=== PATIENT | female | born 1955 | race Caucasian/White ===

== ENCOUNTER 2020-03-19 12:00 | Outpatient (CLI) | payer MEDICARE, OTHER, SELFPAY ==
[2020-03-19 13:56] LABS: Thyroid Stimulating Hormone 0.036 uIU/mL (0.465-4.680)
[2020-03-19 14:03] LABS: Free T4 Free Thyroxine 1.47 ng/mL (0.78-2.19)
[2020-03-20 09:03] LABS: Rapid Plasma Reagin Non-Reactive (NonReactive)
== END 2020-03-19 12:01 | disposition home or self-care (01) ==
LOC: ANHLAB 12:20
PROVIDERS: PCP Physician Assistant; Visit Provider Physician Assistant
DX: Z77.21 Contact with and (suspected) exposure to potentially hazardous body fluids (principal); E03.9 Hypothyroidism, unspecified
CPT/HCPCS: 36415; 84439; 84443; 86592; 86695; 86696; 87491; 87591; 87635; C9803; U0003

== ENCOUNTER 2020-04-13 14:18 | Observation (INO) | payer OTHER, MEDICARE, SELFPAY ==
[2020-04-13] VITALS (9 sets, daily range): BP systolic 105–149; BP diastolic 55–76; PULSE 57–72; RESP 13–18; TEMP 36.2–36.4; O2SAT 96–100; BMI 25.0
--- NOTE | ~2020-04-13 | CT_ITS ---
EXAMINATION: CT brain wo con DATE: 04/13/2020 15:09 INDICATION: Seizure. TECHNIQUE: Computed tomography (CT) of the head was performed without intravenous contrast. The mA wa s adjusted according to patient size. Iterative reconstruction technique was employed. The dose-lengt h product was 605.33 mGy-cm. COMPARISON: Head CT 10/27/2015 FINDINGS: There are scattered areas of low attenuation in the cerebral white matter. There is no intr acranial hemorrhage, acute infarction, or abnormal intracranial mass lesion. The ventricles are lanette l in size. The orbits are normal. The paranasal sinuses are clear. The mastoid air cells are normal. IMPRESSION: 1. Stable moderate nonspecific cerebral white matter disease, which likely represents chronic small v essel ischemic disease. Reviewed, dictated and finalized at location A. IMPRESSION: 1. Stable moderate nonspecific cerebral white matter disease, which likely repr esents chronic small vessel ischemic disease.
--- NOTE | 2020-04-13 14:27 | ECG_ITS ---
Measurements Intervals [place] Rate: 55 P: 49 OR: 172 QRS: -10 QRSD: 93 T: 44 QT: 425 QTc: 410 Interpretive Statements SINUS BRADYCARDIA DELAYED PRECORDIAL R/S TRANSITION BORDERLINE ECG Electronically Signed On 04-13-2020 14:39:07 CDT by Henrique Cordero D.O.
--- NOTE | 2020-04-13 14:39 | ED.GENADULT ---
HPI - General Adult General Chief complaint: Seizure Stated complaint: Seizure Time Seen by Provider: 04/13/20 14:26 Source: patient and RN notes reviewed History of Present Illness HPI narrative: Patient is a 65 y/o female brought in by hospital staff because she reportedly had a seizure while getting blood drawn for outpatient lab. She recalls sitting there getting ready for blood drawn and does not recall what happened afterwards. Apparently, rapid response was called because she became unresponsive and was shaking. She feels well currently. She denies any pain. Related Data Home Medications Medication Instructions Recorded Confirmed clonazepam 1 mg tablet 1 mg PO DAILY 06/04/19 03/25/20 donepezil 5 mg tablet 5 mg PO ONCE 06/04/19 03/25/20 zonisamide 100 mg capsule 400 mg PO DAILY cap 06/04/19 03/25/20 fluoxetine mg 04/13/20 04/13/20 Allergies Allergy/AdvReac Type Severity Reaction Status Date / Time docosahexaenoic acid Allergy Mild Other Verified 04/13/20 14:36 [From Vayarol] eicosapentaenoic acid Allergy Mild Other Verified 04/13/20 14:36 [From Vayarol] fish oil [From Vayarol] Allergy Mild Other Verified 04/13/20 14:36 omega-3 fatty acids Allergy Mild Other Verified 04/13/20 14:36 [From Vayarol] phytosterol [From Vayarol] Allergy Mild Other Verified 04/13/20 14:36 Review of Systems Constitutional: Constitutional: Denies chills, Denies fever(s), Denies headache(s) and Denies weakness Eyes: Eyes: Denies blurry vision ENT: Denies headache(s) and Denies neck pain Cardiovascular: Cardiovascular: Denies chest pain and Denies dyspnea Respiratory: Respiratory: Denies cough and Denies dyspnea Gastrointestinal: Gastrointestinal: Denies abdominal pain, Denies diarrhea, Denies nausea and Denies vomiting Genitourinary: Genitourinary: Denies hematuria and Denies dysuria Musculoskeletal: Musculoskeletal: Denies back pain and Denies neck pain Neurologic: Denies headache(s), Reports convulsions, Reports seizure-like activity and Denies weakness [facility] Surgical History Surgical History H/O blepharoplasty Hx of appendectomy Tubal ligation status Social History Social History Smoking packs per day: 1 Smoking cigarettes per day: 20.0 Years smoked: 35 Smoking pack-years: 35.00 Smoking status: Former smoker Second hand tobacco smoke exposure: No Alcohol intake: never Substance use: never Gender identity (if verbalized by the patient): Female Exam Const: General: no acute distress and well developed Orientation/consciousness: oriented to person, oriented to place, oriented to time and patient oriented x3 HENMT: Head: normocephalic Ears: external ears normal General nose exam: Normal external nose present Eyes: General: appearance normal, both eyes and all related structures Conjunctivae: conjunctivae normal Neck: Neck: normal visual inspection and full ROM Chest: Chest palpation & inspection: normal inspection of the chest and no tenderness Resp: Effort & Inspection: normal respiratory effort Auscultation: clear to auscultation bilaterally Cardio: Rate: regular rate Rhythm: regular rhythm GI: GI Palp: No abdominal tenderness and Yes Soft to palpation Skin: General skin exam: normal color and turgor normal Neuro: General: oriented to person, oriented to place, oriented to time and patient oriented x3 Cranial nerves: Yes CN's II-XII intact bilaterally Cognition (Neuro): normal cognition Motor exam (neuro): 5/5 motor strength present throughout Extrem: General: normal to inspection, full ROM and no pedal edema Psych: Appearance: grossly normal Mental Status: mental status grossly normal Affect: normal affect Course Reevaluation(s) Reevaluation #1: Patient reportedly had another seizure while in CT. Currently, she is awake, but somewhat confused. Date: 04/13/20 Ti
[2020-04-13 15:00] LABS: Add Urine Microscopic? NO; Appearance Urine Clear (Clear); Bilirubin Urine Negative (Negative); Blood Urine Negative (Negative); Color Urine Yellow (Yellow); Glucose Urine UA Negative (Negative); Ketones Urine Negative (Negative); Leukocyte Esterase Ur Negative LEU/UL (Negative); Mucus Urine Rare /lpf; Nitrate Urine Negative (Negative); Protein Urine Negative (Negative); RBC Urine 0-2 /hpf (0-2); Specific Grav Ur 1.017 (1.001-1.035); Squamous Epithelial Cell Urine Rare /hpf (Few); Urobilinogen Urine Negative mg/dL (<2.0); WBC Urine 0-3 /hpf
[2020-04-13 15:02] LABS: Basophils Percent Auto 0.7 % (0.2-1.2); Eosinophils Absolute Auto 0.3 K/mm3 (0-0.3); Eosinophils Percent Auto 5.1 % (0-4.4); Hematocrit 41.8 % (37.0-47.0); Hemoglobin 13.5 g/dL (12.0-15.0); Immature Granulocyte Absolute 0.02 K/mm3 (0.00-0.031); Immature Granulocyte Percent A 0.3 % (0-0.5); Lymphocytes Absolute Auto 1.89 K/mm3 (0.9-3.2); Lymphocytes Percent Auto 30.9 % (18.3-44.2); Mean Corpuscular HGB Conc 32.3 g/dl (32-36); Mean Corpuscular Hemoglobin 30.6 pg (26-34); Mean Corpuscular Volume 94.8 fl (80-100); Mean Platelet Volume 9.7 fl (7.4-10.4); Monocytes Absolute Auto 0.4 K/mm3 (0.1-0.6); Monocytes Percent Auto 6.9 % (2.6-8.5); Neutrophils Absolute Auto 3.4 K/mm3 (1.3-6.7); Neutrophils Percent Auto 56.1 % (45.5-73.1); Platelet Count Result 232 k/mm3 (150-375); Red Blood Count 4.41 M/mm3 (4.2-5.4); Red Cell Distribution Width 13.5 % (11.5-14.5); White Blood Count 6.1 K/mm3 (4.5-10.0)
[2020-04-13 15:14] LABS: Alanine Aminotransferase 14 U/L (4-35); Alkaline Phosphatase 109 U/L (38-126); Anion Gap 6 mmol/L (8-16); Aspartate Amino Transferase 20 U/L (14-36); Bilirubin,Total 0.4 mg/dL (0.2-1.3); Blood Urea Nitrogen 18 mg/dL (7-17); Carbon Dioxide 30 mmol/L (22-30); Chloride 102 mmol/L (98-107); Estimated CRCL calculation 37 ml/min; Estimated Glomerular Filt Rate 56; Glucose 87 mg/dL (65-105); Potassium 4.3 mmol/L (3.4-5.0); Sodium 138 mmol/L (137-145)
--- NOTE | 2020-04-13 15:15 | PC.NURSE ---
Rapid response called to CT, pt was shaking but making purposeful movement, Pt is alert and oriented, VORB for 1 mg ativan
[2020-04-13 15:17] LABS: Amphetamine Screen Urine Negative (Negative); Barbiturate Screen Urine Negative (Negative); Benzodiazepines Screen Urine Negative (Negative); Cannabinoid Screen Urine Negative (Negative); Cocaine Screen Urine Negative (Negative); Methadone Screen Urine Negative (Negative); Opiate Screen Urine Negative (Negative); Phencyclidine Screen Urine Negative (Negative)
--- NOTE | 2020-04-13 15:23 | PC.NURSE ---
Pt alert and oriented, pt refusing ativan at this time. Pt still shaking her right arm
--- NOTE | 2020-04-13 17:29 | PC.NURSE ---
Dietary tray ordered for pt at this time.
--- NOTE | 2020-04-13 19:00 | ADMGEN ---
This patient, Conchis Galindo, was admitted to Medical Room 342-01. Patient/family oriented to hospital policies and general routines including ID bracelet, bed and alarms, visiting hours, pain management, procedures, bathroom and other care routines, personal items, smoking policy, room service/diet, and visiting hours. Valuables list has been completed. Information on how to activate the Rapid Response Team has been discussed. Patient/Family are encouraged to report perceived risks to care and to ask questions if they do not understand what they are told or what they should do.
--- NOTE | 2020-04-13 22:13 | PM.IMHP ---
H&P: HPI History of Present Illness Date/Time: 04/13/20 22:13 Chief complaint: seizure Narrative: this is a 65-year-old demented female with known history of a possible seizure disorder, bipolar disorder, hypothyroidism, and hyperlipidemia who presented to the hospital today get routine labs done when she had a unresponsive event. Apparently a rapid response was called because the patient became unresponsive and began shaking. It is unknown exactly how long the patient's possible seizure-like activity lasted for today. The patient is known to see neurology at [facility] for possible seizure disorder although she tells me she was diagnosed with myoclonic jerks approximately 10 years ago. The patient is known to live alone and she states that she knows she can not live alone anymore because she has been having 2-5 falls every week. The patient believes that she has paroxysmal myoclonic jerking episodes in the middle the night because often she wakes up the next morning on the ground. Today the patient did not have any tongue biting or loss of urine. She denies any recent head trauma and states she has been taking her Zonegran as prescribed. the patient was evaluated emergency room this evening and CT brain was unremarkable for any acute pathology. Routine labs were obtained which were unremarkable. The patient does not appear to have had a prolonged postictal and on my encounter with her she is asymptomatic. On further review she denies any recent fever, chills, headache, nausea, vomiting, blurry vision, facial droop, slurred speech, difficulty swallowing, chest pain, shortness of breath, wheezing, sore throat, abdominal pain, dysuria, hematuria, diarrhea, rectal bleeding, lower extremity swelling, numbness, tingling, or focal weakness. ER provider has consulted neurology who has asked that we admit the patient to the hospital and they will evaluate her in the morning. ER provider has also called her neurologist at [facility]. Review of Systems Review of Systems: All systems reviewed & are unremarkable except as noted in HPI and below PMFSH Past Medical History Medical History (Updated 04/14/20 @ 03:46 by Homero Packer MD) Bipolar 1 disorder Hyperlipidemia Hypothyroidism Myoclonic jerking Seizure disorder Surgical History Surgical History H/O blepharoplasty Hx of appendectomy Tubal ligation status Family History Family History Father Acute myocardial infarction Congestive heart failure Hypertension Grandparent Acute myocardial infarction Asthma Chronic obstructive pulmonary disease Congestive heart failure Hypertension Son Asthma Cerebrovascular accident Son Hypertension Grandparent Hypertension Grandparent Hypertension Grandparent Hypertension Social History Social History Smoking packs per day: 1 Smoking cigarettes per day: 20.0 Years smoked: 48 Smoking pack-years: 48.00 Smoking status: Former smoker Second hand tobacco smoke exposure: Yes Alcohol intake: never Substance use: never Gender identity (if verbalized by the patient): Female Spiritual care concerns: No Meds Home Medications and Allergies Home Medications Medication Instructions Recorded Confirmed Type clonazepam 1 mg tablet 1 mg PO BID 06/04/19 04/13/20 History donepezil 5 mg tablet 5 mg PO HS 06/04/19 04/13/20 History zonisamide 100 mg capsule 400 mg PO HS cap 06/04/19 04/13/20 History levothyroxine 100 mcg tablet 100 mcg PO DAILY #90 tablet 03/23/20 04/13/20 Rx fluoxetine [Prozac] 20 mg PO DAILY 04/13/20 04/13/20 History pravastatin 80 mg PO HS 04/13/20 04/13/20 History Allergies Allergy/AdvReac Type Severity Reaction Status Date / Time docosahexaenoic acid Allergy Mild Other Verified 04/13/20 19:40 [From Shruthi
[2020-04-13] MEDS: clonazePAM (*CRX) 0.5 MG TABLET 1 MG PO (23:20)
[2020-04-13] MEDS: ZONISAMIDE 100 MG CAPSULE 400 MG PO (23:20)
[2020-04-13] MEDS: DONEPEZIL HCL 5 MG TABLET PO (23:20)
[2020-04-13] MEDS: PRAVASTATIN SODIUM 20 MG TABLET 80 MG PO (23:21)
[2020-04-14] VITALS: PULSE 49
[2020-04-14 04:00] VITALS: PULSE 47
[2020-04-14 05:23] VITALS: BP 106/60; PULSE 49; RESP 16; TEMP 36.2; O2SAT 97
[2020-04-14] MEDS: LEVOTHYROXINE SODIUM 100 MCG TABLET PO (05:55)
[2020-04-14 08:00] VITALS: PULSE 65
--- NOTE | 2020-04-14 08:32 | PM.IMPN ---
Subjective Date/time seen: 04/14/20 08:32 Objective Data Vital Signs Vital Signs: Vital Signs - 24 hr 04/13/20 14:25 04/13/20 14:33 04/13/20 15:24 Temperature 97.5 F L Pulse Rate 57 L 57 L 60 Respiratory Rate 14 18 Blood Pressure 128/55 L 149/76 H Pulse Oximetry 97 97 100 04/13/20 16:43 04/13/20 17:26 04/13/20 18:15 Temperature Pulse Rate 72 58 L 62 Respiratory Rate 15 14 13 Blood Pressure 143/59 H 140/55 L 109/65 Pulse Oximetry 100 100 96 04/13/20 19:29 04/13/20 19:32 04/13/20 20:00 Temperature 97.1 F L 97.1 F L Pulse Rate 59 L 59 L 61 Respiratory Rate 14 16 Blood Pressure 105/58 L 105/58 L Pulse Oximetry 100 100 04/14/20 00:00 04/14/20 04:00 04/14/20 05:23 Temperature 97.1 F L Pulse Rate 49 L 47 L 49 L Respiratory Rate 16 Blood Pressure 106/60 Pulse Oximetry 97 04/14/20 08:00 Temperature Pulse Rate 65 Respiratory Rate Blood Pressure Pulse Oximetry Intake/Output Intake/Output: Intake & Output 04/11/20 04/12/20 04/13/20 04/14/20 23:59 23:59 23:59 23:59 Intake Total 300 Output Total 400 600 Balance -400 -300 Meds/Results Medications: Active Medications Generic Name Dose Route Start Last Admin Trade Name Freq PRN Reason Stop Dose Admin Clonazepam 1 mg 04/13/20 22:30 04/13/20 23:20 Clonazepam (*Crx) 0.5 Mg Tablet PO 1 mg Q12HR JALEEL Administration Donepezil HCl 5 mg 04/13/20 22:30 04/13/20 23:20 Donepezil Hcl 5 Mg Tablet PO 5 mg HS JALEEL Administration Fluoxetine HCl 20 mg 04/14/20 09:00 Fluoxetine Hcl 20 Mg Capsule PO DAILY JALEEL Levothyroxine Sodium 100 mcg 04/14/20 06:30 04/14/20 05:55 Levothyroxine Sodium 100 Mcg Tablet PO 100 mcg DAILY@0630 JALEEL Administration Pravastatin Sodium 80 mg 04/13/20 22:30 04/13/20 23:21 Pravastatin Sodium 20 Mg Tablet PO 80 mg HS JALEEL Administration Zonisamide 400 mg 04/13/20 22:30 04/13/20 23:20 Zonisamide 100 Mg Capsule PO 400 mg HS JALEEL Administration Radiology Results: ITS Impressions Head CT 04/13/20 15:13 IMPRESSION: 1. Stable moderate nonspecific cerebral white matter disease, which likely represents chronic small vessel ischemic disease. Labs Labs: Laboratory Results - last 24 hr 04/13/20 04/13/20 04/13/20 14:44 14:44 14:55 WBC 6.1 RBC 4.41 Hgb 13.5 Hct 41.8 MCV 94.8 MCH 30.6 MCHC 32.3 RDW 13.5 Plt Count 232 MPV 9.7 Immature Gran % (Auto) 0.3 Neut % (Auto) 56.1 Lymph % (Auto) 30.9 Butts % (Auto) 6.9 Eos % (Auto) 5.1 H Baso % (Auto) 0.7 Lymph # (Auto) 1.89 Butts # (Auto) 0.4 Eos # (Auto) 0.3 Baso # (Auto) 0.0 Abs Immat Gran (auto) 0.02 Absolute Neuts (auto) 3.4 Absolute Nucleated RBC 0.0 Nucleated RBC % 0.0 Sodium Potassium Chloride Carbon Dioxide Anion Gap BUN Creatinine Estim Creat Clear Calc Estimated GFR Glucose Lactic Acid Calcium Total Bilirubin AST ALT Alkaline Phosphatase Total Protein Albumin Urine Color Yellow Urine Appearance Clear Urine pH 6.0 Ur Specific [place] 1.017 Urine Protein Negative Urine Glucose (UA) Negative Urine Ketones Negative Ur Blood (Man) Negative Urine Nitrate Negative Urine Bilirubin Negative Urine Urobilinogen Negative Leukocyte Esterase Rfl Negative Urine RBC 0-2 Urine WBC 0-3 Ur Squamous Epith Cells Rare Urine Mucus Rare Urine Opiates Screen Negative Urine Methadone Screen Negative Ur Barbiturates Screen Negative Ur Phencyclidine Scrn Negative Ur Amphetamine Screen Negative U Benzodiazepines Scrn Negative Urine Cocaine Screen Negative U Cannabinoids Screen Negative 04/13/20 04/13/20 14:55 15:45 WBC RBC Hgb Hct MCV MCH MCHC RDW Plt Count MPV Immature Gran % (Auto) Neut % (Auto) Lymph % (Auto) Butts % (Auto) Eos %
[2020-04-14] MEDS: clonazePAM (*CRX) 0.5 MG TABLET 1 MG PO (09:13)
[2020-04-14] MEDS: FLUoxetine HCL 20 MG CAPSULE PO (09:13)
--- NOTE | 2020-04-14 09:15 | WPDNEUROLOGY ---
Neurology EEG Report General Information Date of Study: 04/14/20 TEST EEG DIAGNOSIS seizures CONDITION OF RECORDING Awake drowsy and sleep EEG NUMBER [id number] CLINICAL HISTORY patient came to the hospital day before for some blood workup, unfortunately had a seizure while waiting in the room EEG DESCRIPTION basic resting occipital frequency consists of large amount of well-organized low to medium voltage 8 to 10 hertz per 2nd alpha admixed with low-voltage 15 to 18 hertz per 2nd beta. During drowsiness low-voltage beta activity seen diffusely admixed with waxing and waning alpha activity. Hyperventilation not done photic stimulation not done. Non paroxysmal. Nonfocal. Nonlateralizing. IMPRESSION Normal EEG
--- NOTE | 2020-04-14 11:05 | WPDNEURCNPN ---
Assessment and Plan Assessment and plan (1) Bipolar 1 disorder: Code(s): F31.9 - Bipolar disorder, unspecified Status: Chronic (2) Seizure disorder: Code(s): G40.909 - Epilepsy, unspecified, not intractable, without status epilepticus Status: Chronic Additional Plan continue the medication as such and follow up with her physicians at [facility] she is taking zonisamide 40 mg at HS along with Klonopin 1 mg p.o. q.12 hours no need to make any changes in the medication at this particular time Consult date: 04/14/20 Time Seen: 10:45 HPI: Conchis Galindo is a 65 year old female admitted to the hospital with the diagnosis of seizure in addition to the ongoing history of possible seizure disorder, bipolar disorder, hypothyroidism, and hyperlipidemia patient reportedly came to the hospital to have a routine lab done with their she became unresponsive rapid response was called to the scene and patient was noted with shaking all over patient has been under the care of neurologist at [facility] for the possible seizure disorder diagnosed about 10 years ago at present she is living alone and has been unable to continue living alone because of recurrent falls every week he usually myoclonic jerks during her sleep wakes up in the morning with signs of incontinence she gave no history of recent or remote trauma she reported that she has been taking Zonegran am as prescribed in the emergency room a CT scan of the head was normal and she was not noted to have any postictal. Her ongoing diagnosis have been documented as bipolar 1 disorder with hyperlipidemia hypothyroidism and myoclonic seizure disorder evaluation up until long includes the CT scan of the head which is normal except the nonspecific white matter disease normal routine lab studies and EEG read by myself negative Review of Systems Review of Systems: All systems reviewed & are unremarkable except as noted in HPI and below PMFSH Past Medical History Medical History (Updated 04/14/20 @ 03:46 by Homero Packer MD) Bipolar 1 disorder Hyperlipidemia Hypothyroidism Myoclonic jerking Seizure disorder Surgical History Surgical History H/O blepharoplasty Hx of appendectomy Tubal ligation status Family History Family History Father Acute myocardial infarction Congestive heart failure Hypertension Grandparent Acute myocardial infarction Asthma Chronic obstructive pulmonary disease Congestive heart failure Hypertension Son Asthma Cerebrovascular accident Son Hypertension Grandparent Hypertension Grandparent Hypertension Grandparent Hypertension Social History Social History Smoking packs per day: 1 Smoking cigarettes per day: 20.0 Years smoked: 48 Smoking pack-years: 48.00 Smoking status: Former smoker Second hand tobacco smoke exposure: Yes Alcohol intake: never Substance use: never Gender identity (if verbalized by the patient): Female Spiritual care concerns: No Meds Home Medications and Allergies Home Medications Medication Instructions Recorded Confirmed Type clonazepam 1 mg tablet 1 mg PO BID 06/04/19 04/13/20 History donepezil 5 mg tablet 5 mg PO HS 06/04/19 04/13/20 History zonisamide 100 mg capsule 400 mg PO HS cap 06/04/19 04/13/20 History levothyroxine 100 mcg tablet 100 mcg PO DAILY #90 tablet 03/23/20 04/13/20 Rx fluoxetine [Prozac] 20 mg PO DAILY 04/13/20 04/13/20 History pravastatin 80 mg PO HS 04/13/20 04/13/20 History Allergies Allergy/AdvReac Type Severity Reaction Status Date / Time docosahexaenoic acid Allergy Mild Other Verified 04/13/20 19:40 [From Vayarol] eicosapentaenoic acid Allergy Mild Other Verified 04/13/20 19:40 [From Vayarol] fish oil [From Vayarol] Allergy Mild Other Verifie
[2020-04-14 12:00] VITALS: PULSE 76
[2020-04-14 13:42] VITALS: BP 128/51; PULSE 53; RESP 16; TEMP 35.8; O2SAT 99
--- NOTE | 2020-04-15 17:05 | PM.DS ---
DS: Admitting Diagnosis Admitting Diagnosis Admitting Diagnosis: Patient with history of seizure was receiving lab work results when she had an episode absence seizure was brought to ED for evaluation. Preliminary work up was unrevealing. A CT of the head showed chronic non specific white matter disease. DS: Discharge Diagnosis Discharge Diagnosis (1) Unresponsive episode: Code(s): R41.89 - Other symptoms and signs involving cognitive functions and awareness Status: Acute Assessment and Plan: Patient was evaluated by Neurology for this unresponsive episode No new episodes while hospital stay were witnessed. Decision was to continue her home meds and follow up at [facility] with her regular Neurologist. (2) Bipolar 1 disorder: Code(s): F31.9 - Bipolar disorder, unspecified Status: Chronic Assessment and Plan: Was stable Home meds wre continued. (3) Hyperlipidemia: Qualifiers: Hyperlipidemia type: unspecified Qualified Code(s): E78.5 - Hyperlipidemia, unspecified Code(s): E78.5 - Hyperlipidemia, unspecified Status: Chronic Assessment and Plan: Stable Home meds continued (4) Seizure disorder: Code(s): G40.909 - Epilepsy, unspecified, not intractable, without status epilepticus Status: Chronic Assessment and Plan: Continue home meds Neurology consulted. (5) Seizure: Code(s): R56.9 - Unspecified convulsions Status: Acute Assessment and Plan: No episodes during her admission. As per Neurology no changes to current meds Recommended to follow up as usual with her Neurologist. (6) Hypothyroidism: Qualifiers: Hypothyroidism type: unspecified Qualified Code(s): E03.9 - Hypothyroidism, unspecified Code(s): E03.9 - Hypothyroidism, unspecified Status: Chronic Assessment and Plan: Unchanged Continue home meds DS: Summary Time Spent with Patient Time attestation: Total time spent providing and/or coordinating discharge services: Exam Narrative: Exam Narrative: Sitting in bed well appearing. Const: General: cooperative, healthy appearing, no acute distress, alert, awake and Physically active Nutritional Appearance: average body habitus HENMT: Head: normal to inspection and normocephalic Ears: hearing grossly normal bilaterally General nose exam: Normal external nose present Face and sinus: normal facial exam Mouth: Yes Normal oral and palatal mucosa present Eyes: General: appearance normal, both eyes and all related structures Pupils: Equal, round and reactive pupils present EOM: EOMs intact bilaterally Neck: Neck: full ROM, no lymphadenopathy and no JVD Thyroid: thyroid normal Resp: Effort & Inspection: normal respiratory effort Auscultation: clear to auscultation bilaterally Cardio: Jugular venous distension: no JVD Heart sounds: S1 normal heart sound present and S2 normal heart sound present GI: Inspection: normal to inspection GI Palp: Yes Soft to palpation and Yes No hepatosplenomegaly present Auscultation: normal bowel sounds Skin: General skin exam: normal color and turgor normal Lesions: no lesions Rashes: no rashes Trauma: no lacerations or abrasions Wounds: no wounds Hair: normal Neuro: General: patient oriented x3 and CN's II-XI intact bilaterally Cranial nerves: Yes Equal, round and reactive pupils present Motor exam (neuro): 5/5 motor strength present throughout Sensory Exam: normal sensation Discharge Plan Discharge Attending physician on discharge: Janay Treadwell V. Consulting providers: Gianni Arnold ; Henrique Cordero ; Torres Zhao ; Parminder Campos V. ; Homero Packer Discharging Clinician: Janay Treadwell V. Patient Disposition: Home, Self-Care Activity: as tolerated Diet: regular Patient Instructions: Antibiotic Form, Clonazepam (By mouth), Pain Management (DC), Epilepsy (DC), Weakness (DC), Fall Prevention (DC), Electroencephalogra
[2020-04-16 04:13] LABS: Prolactin 13.2 ng/mL (***)
== END 2020-04-14 15:02 | disposition home or self-care (01) ==
LOC: ANHED 15:36 → ANH3MED 19:00
PROVIDERS: Admitting Provider Internal Medicine; Emergency Provider Emergency Medicine; PCP Physician Assistant; Visit Provider Internal Medicine
DX: R41.89 Other symptoms and signs involving cognitive functions and awareness (principal); F31.9 Bipolar disorder, unspecified; G40.909 Epilepsy, unspecified, not intractable, without status epilepticus; E03.9 Hypothyroidism, unspecified; E78.5 Hyperlipidemia, unspecified; R29.6 Repeated falls; Z87.891 Personal history of nicotine dependence; Z23 Encounter for immunization
CPT/HCPCS: 36415; 51701; 70450; 80053; 80307; 81003; 83605; 84146; 85025; 90471; 90653; 93005; 95816; 99285; A9270; G0008; G0378; J2060

== ENCOUNTER 2020-09-07 16:16 | Outpatient (CLI) | payer OTHER, MEDICARE, SELFPAY ==
[2020-09-07 17:44] LABS: Free T4 Free Thyroxine 1.42 ng/mL (0.78-2.19)
[2020-09-07 17:50] LABS: Thyroid Stimulating Hormone 0.212 uIU/mL (0.465-4.680)
== END 2020-09-07 16:17 | disposition home or self-care (01) ==
LOC: ANHLAB 16:20
PROVIDERS: PCP Physician Assistant; Visit Provider Physician Assistant
DX: E03.9 Hypothyroidism, unspecified (principal)
CPT/HCPCS: 36415; 84439; 84443

== ENCOUNTER 2020-09-08 16:38 | Outpatient (CLI) | payer OTHER, MEDICARE, SELFPAY | END 2020-09-08 16:39 | disposition home or self-care (01) | LOC: ANHCOVIDVC 16:38 | PROVIDERS: PCP Physician Assistant | DX: Z23 Encounter for immunization (principal) | CPT/HCPCS: 0001A; 91300 ==

== ENCOUNTER 2020-09-29 17:12 | Outpatient (CLI) | payer OTHER, MEDICARE, SELFPAY | END 2020-09-29 17:13 | disposition home or self-care (01) | LOC: ANHCOVIDVC 17:14 | PROVIDERS: PCP Physician Assistant | DX: Z23 Encounter for immunization (principal) | CPT/HCPCS: 0002A; 91300 ==

== ENCOUNTER 2021-03-17 11:45 | Outpatient (CLI) | payer OTHER, MEDICARE, SELFPAY ==
[2021-03-17 17:44] LABS: Free T4 Free Thyroxine 1.31 ng/mL (0.78-2.19)
== END 2021-03-17 11:46 | disposition home or self-care (01) ==
PROVIDERS: PCP Physician Assistant; Visit Provider Physician Assistant
DX: E03.9 Hypothyroidism, unspecified (principal)
CPT/HCPCS: 36415; 84439; 84443

== ENCOUNTER → 2021-06-07 10:45 | Outpatient (NON) | payer MEDICARE, OTHER, SELFPAY ==
[2020-03-19 20:08] LABS: SARS-CoV-2 RNA PCR Negative
== END | disposition home or self-care (01) ==
PROVIDERS: PCP Physician Assistant; Visit Provider Physician Assistant
DX: R68.89 Other general symptoms and signs (principal); Z20.828 Contact with and (suspected) exposure to other viral communicable diseases
CPT/HCPCS: 99199; 87635; C9803; U0003

== ENCOUNTER 2021-10-14 11:31 | Outpatient (CLI) | payer OTHER, MEDICARE, SELFPAY ==
[2021-10-14 12:04] LABS: Hematocrit 45.4 % (37.0-47.0); Hemoglobin 14.7 g/dL (12.0-15.0); Mean Corpuscular HGB Conc 32.4 g/dl (32-36); Mean Corpuscular Hemoglobin 30.2 pg (26-34); Mean Corpuscular Volume 93.2 fl (80-100); Mean Platelet Volume 9.1 fl (7.4-10.4); Platelet Count Result 300 k/mm3 (150-375); Red Blood Count 4.87 M/mm3 (4.2-5.4); Red Cell Distribution Width 14.5 % (11.5-14.5); White Blood Count 9.5 K/mm3 (4.5-10.0)
[2021-10-14 12:23] LABS: Alanine Aminotransferase 14 U/L (4-35); Albumin Level 4.9 g/dL (3.5-5.1); Alkaline Phosphatase 99 U/L (38-126); Anion Gap 8 mmol/L (8-16); Aspartate Amino Transferase 26 U/L (14-36); Bilirubin,Total 0.4 mg/dL (0.2-1.3); Blood Urea Nitrogen 19 mg/dL (7-17); Calcium 9.2 mg/dL (8.4-10.2); Carbon Dioxide 28 mmol/L (22-30); Chloride 100 mmol/L (98-107); Estimated Glomerular Filt Rate > 60; Glucose 97 mg/dL (65-110); HDL Direct 67 mg/dL; Potassium 4.1 mmol/L (3.4-5.0); Sodium 136 mmol/L (137-145); Triglycerides 216 mg/dL (<150)
[2021-10-14 12:28] LABS: LDL Cholesterol Direct 178 mg/dL
[2021-10-14 12:46] LABS: Cholesterol 348 mg/dL (0-200)
[2021-10-14 13:01] LABS: Hepatitis B Surface Antigen Negative (Negative)
[2021-10-14 13:06] LABS: HAV RESULT Negative (Negative); Hepatitis B Core IgM Result Negative (Negative)
[2021-10-14 13:18] LABS: Hepatitis C Virus Antibody Negative (Negative)
[2021-10-15 05:48] LABS: Rapid Plasma Reagin Non-Reactive (NonReactive)
[2021-10-18 06:56] LABS: HIV 1 2 Ag Ab 4th Gen w Rflxs Non-reactive (Non-reactive)
== END 2021-10-14 11:32 | disposition home or self-care (01) ==
LOC: ANHLAB 11:32
PROVIDERS: PCP Physician Assistant; Visit Provider Physician Assistant
DX: R53.83 Other fatigue (principal); E78.5 Hyperlipidemia, unspecified; Z11.3 Encounter for screening for infections with a predominantly sexual mode of transmission
CPT/HCPCS: 36415; 80053; 80061; 80074; 82607; 82746; 84443; 85027; 86592; 86695; 86696; 87389; 87491; 87591

== ENCOUNTER 2022-10-17 11:09 | Outpatient (CLI) | payer OTHER, MEDICARE, SELFPAY ==
[2022-10-17 11:38] LABS: Basophils Absolute Auto 0.1 K/mm3 (0.0-0.1); Basophils Percent Auto 0.6 % (0.2-1.2); Eosinophils Absolute Auto 0.5 K/mm3 (0-0.3); Eosinophils Percent Auto 5.9 % (0-4.4); Hematocrit 45.8 % (37.0-47.0); Immature Granulocyte Absolute 0.02 K/mm3 (0.00-0.031); Immature Granulocyte Percent A 0.2 % (0-0.5); Lymphocytes Percent Auto 26.1 % (18.3-44.2); Mean Corpuscular HGB Conc 32.8 g/dl (32-36); Mean Corpuscular Hemoglobin 29.1 pg (26-34); Mean Corpuscular Volume 88.8 fl (80-100); Mean Platelet Volume 9.1 fl (7.4-10.4); Monocytes Absolute Auto 0.5 K/mm3 (0.1-0.6); Monocytes Percent Auto 5.7 % (2.6-8.5); Neutrophils Absolute Auto 5.4 K/mm3 (1.3-6.7); Neutrophils Percent Auto 61.5 % (45.5-73.1); Platelet Count Result 319 k/mm3 (150-375); Red Blood Count 5.16 M/mm3 (4.2-5.4); Red Cell Distribution Width 14.9 % (11.5-14.5); White Blood Count 8.8 K/mm3 (4.5-10.0)
[2022-10-17 11:46] LABS: Alanine Aminotransferase 18 U/L (6-35); Albumin Level 4.9 g/dL (3.5-5.1); Alkaline Phosphatase 122 U/L (38-126); Anion Gap 6 mmol/L (8-16); Aspartate Amino Transferase 24 U/L (14-36); Bilirubin,Total 0.7 mg/dL (0.2-1.3); Blood Urea Nitrogen 14 mg/dL (7-17); Calcium 9.2 mg/dL (8.4-10.2); Carbon Dioxide 33 mmol/L (22-30); Chloride 98 mmol/L (98-107); Cholesterol 255 mg/dL (0-200); Estimated Glomerular Filt Rate > 60; Glucose 106 mg/dL (65-110); HDL Direct 49 mg/dL; Potassium 4.4 mmol/L (3.4-5.0); Sodium 137 mmol/L (137-145); Triglycerides 195 mg/dL (<150)
[2022-10-17 11:57] LABS: LDL Cholesterol Direct 142 mg/dL
[2022-10-17 14:04] LABS: Folic Acid 5.6 ng/mL (2.76->20)
== END 2022-10-17 11:10 | disposition home or self-care (01) ==
PROVIDERS: PCP Physician Assistant; Visit Provider Physician Assistant
DX: R53.83 Other fatigue (principal); E03.9 Hypothyroidism, unspecified; E78.5 Hyperlipidemia, unspecified
CPT/HCPCS: 36415; 80053; 80061; 82607; 82746; 84439; 84443; 85025

== ENCOUNTER 2024-08-07 14:14 | Outpatient (CLI) | payer OTHER, MEDICARE, MEDICAID, SELFPAY ==
--- OUTSIDE RECORDS SUMMARY | 2024-08-07 15:12 | XMS_ITS | Patient Health Summary ---
Author Organization [facility] Address [address] [place] [address] Care Team Providers Care Research Associate Name Role Phone Graham Magallanes MD Unavailable [phone] Marie Kwan MD Unavailable [phone] Note from [facility],non-owned Affiliates and Associated Physician Practices is amultiple site organization consisting of ambulatory clinics and hospital sitesin [place] and [place]. This disclosure is being madepursuant to the Care Everywhere program and may not contain all information available regarding this patient. Last updated 18.[facility] Allergies * Duloxetine(Caused perfecto) Medications * Be aware that medications may not be up to date on this document. Alwaysverify current medications with the patient. * FLUoxetine (PROZAC) 40 MG capsule(Started 02/07/2012) Take 1 Cap by mouth once daily. 5 refills left * clonazePAM (KLONOPIN) 0.5 MG tablet(Started 02/07/2012) Take 2 Tabs by mouth 2 times daily. * vitamin D (CHOLECACIFEROL) 5000 UNITS CAPS(Started 02/07/2012) Take 3 Caps by mouth every 7 days. * donepezil (ARICEPT) 10 MG tablet Take 0.5 mg by mouth at bedtime. * Multiple Vitamin (MULTI-VITAMIN DAILY PO) Take by mouth. * B Complex Vitamins (B COMPLEX PO) Take by mouth. * Ascorbic Acid (VITAMIN C PO) Take by mouth. * vitamin E (TOCOPHERYL) 1000 UNIT capsule Take 1,000 Units by mouth once daily. * levothyroxine (SYNTHROID) 88 MCG tablet(Started 07/17/2013) Take 1 Tab by mouth once daily. 3 refills left * bimatoprost (LUMIGAN) 0.03 % ophthalmic solution(Started 08/12/2013) 1 Drop at bedtime. 3 refills left * zonisamide (ZONEGRAN) 100 MG capsule Take 100 mg by mouth once daily. * pravastatin (PRAVACHOL) 80 MG tablet(Started 06/05/2014) TAKE 1 TABLET AT BEDTIME 2 refills left Active Problems Problem Noted Date Diagnosed Date Cognitive change Hypothyroid Depression Hypercholesteremia GERD (gastroesophageal reflux disease) Immunizations * INFLUENZA VACCINE, TRIV. (AFLURIA, FLUZONE TRIVALENT; 6MO+) (IIV3)(Given 04/16/2012) * FLU VACCINE TRI IIV3 SPLIT PF IM (FLUVIRIN)(Given 07/22/2013) Social History Tobacco Use Types Packs/Day Years Used Date Smoking Tobacco: Former Cigarettes 1 45 Smokeless Tobacco: Never Alcohol Use Standard Drinks/Week Comments No 0 (1 standard drink = 0.6 oz pur e alcohol) Sex and Gender Information Value Date Recorded Sex Assigned at Not on file Gender Identity Not on file Sexual Orientation Not on file Last Filed Vital Signs Vital Sign Reading Time Taken Comments Blood Pressure 134/66 03/03/2020 3:57 AM CDT Pulse 62 03/03/2020 3:57 AM CDT Temperature 36.1 C (97 F) 03/02/2020 8:08 PM CDT Respiratory Rate 16 03/03/2020 3:57 AM CDT Oxygen Saturation 100% 03/03/2020 3:57 AM CDT Inhaled Oxygen Concentration - - Weight 54 kg (119 lb) 03/02/2020 2:13 PM CDT Height 152.4 cm (5') 03/02/2020 2:13 PM CDT Body Mass Index 23.24 03/02/2020 2:13 PM CDT Procedures * URINALYSIS W/MICROSCOPIC NO CULTURE(Performed 03/03/2020) * TRICHOMONAS VAGINALIS AMPLIFIED PROBE(Performed 03/03/2020) * CHLAMYDIA + GC AMPLIFIED PROBE(Performed 03/03/2020) * ZONISAMIDE LEVEL(Performed 03/02/2020) * COMPREHENSIVE METABOLIC PANEL(Performed 03/02/2020) * CBC W AUTO DIFFERENTIAL(Performed 03/02/2020) * VITAMIN D 25-HYDROXY(Performed 03/07/2014) Performed for Cognitive change * TSH(Performed 03/07/2014) Performed for Hypothyroid * VITAMIN B12 FOLATE PANEL(Performed 03/07/2014) Performed for Hypothyroid * COMPREHENSIVE METABOLIC PANEL(Performed 03/07/2014) Performed for Hypothyroid * HEPATITIS C ANTIBODY(Performed 07/17/2013) * TSH(Performed 07/17/2013) * LIPID PROFILE(Performed 07/17/2013) * CBC W AUTO DIFFERENTIAL(Performed 07/17/2013) * HEPATITIS C ANTIBODY(Performed 01/21/2013) Performed for Need for hepatitis C screening test * TSH(Performed 01/21/2013) Performed for Hypothyroid * CBC W AUTO DIFFERENTIAL(Performed 01/21/2013) Performed for GERD (gastroesophageal reflux disease) * LIPID PROFILE(Performed 01/21/2013) Performed for Hypercholesteremia * GROWTH HORMONE HUMAN(Performed 04/09/2012) Performed for Cognitive change, Hypothyroid * TSH(Performed 03/13/2012) Performed for Hypothyroid * LIPID PROFILE(Performed 03/13/2012) Performed for Hypercholesteremia * DEXA BONE DENSITY 2 SITES(Performed 03/13/2012) Performed for Special screening for osteoporosis * MAMMO BILAT SCREENING(Performed 03/13/2012) Performed for Other screening mammogram * GROSS + MICRO EXAM(Performed 12/12/2007) * GROSS + MICRO EXAM(Performed 07/23/2007) * GROSS + MICRO EXAM(Performed 07/11/2007) Results * (ABNORMAL) URINALYSIS W/MICROSCOPIC NO CULTURE (03/03/2020 2:58 AM CDT) Color UA Yellow Straw, Yellow, Colorless 03/03/2020 3:21 AM CDT [facility] Clarity UA Slt Cloudy Clear, Slt Cloudy 03/03/2020 3:21 AM T [facility] Specific [place] UA 1.026 1.005 - 1.030 03/03/2020 3:21 AM [facility] pH UA 5.0 5.0 - 8.0 pH 03/03/2020 3:21 AM CDT [facility] Protein UA 1+(A) Negative mg/dL 03/03/2020 3:21 AM [facility] Glucose UA Negative Negative mg/dL 03/03/2020 3:21 AM CDT [facility] Ketone UA Negative Negative mg/dL 03/03/2020 3:21 AM CDT [facility] Bilirubin UA Negative Negative mg/dL 03/03/2020 3:21 AM CDT [facility] Blood UA Negative Negative 03/03/2020 3:21 AM T [facility] Nitrite UA Negative Negative 03/03/2020 3:21 AM CDT [facility] Leukocyte Esterase Trace(A) Negative 03/03/2020 3:21 AM CDT [facility] Urobilinogen UA Negative Negative mg/dL 03/03/2020 3:21 AM CDT [facility] RBC UA 0-2 None Seen, 0-2, 3-5 /HPF 03/03/2020 3:21 AM CDT [facility] WBC UA 0-5 None Seen, 0-5 /HPF 03/03/2020 3:21 AM T [facility] Squamous Epithelial Cells UA 3-5(A) None Seen, 0-2 /HPF 03/03/2020 3:21 AM T [facility] Mucus UA 4+(A) None, 1+ /LPF 03/03/2020 3:21 AM CDT [facility] Urine URINE SPECIMEN OBTAINED BY CLEAN CATCH PROCEDURE / Unknown Collection / Unknown 03/03/2020 2:58 AM CDT 03/03/2020 3:05 AM CDT Narrative [facility] - 03/03/2020 3:21 AM CDT Donald Segundo MD LAB - URINALYSIS ORD ERABLES Performing Organization Address City/State/[facility] Co de Phone Number [address] [id number] [phone] * TRICHOMONAS VAGINALIS AMPLIFIED PROBE (03/03/2020 2:57 AM CDT) Trichomonas vaginalis Amplified Probe Negative Negative 03/03/2020 1:24 PM CDT [facility] Microbiology URINE / Unknown Collection / Unknown 03/03/2020 2:57 AM CDT 03/03/2020 3:09 AM CDT [facility] MICROBIOLOGY - 03/03/2020 1:24 PM CDT This test was developed and its performance characteristics determined by the [facility], [facility]. Urine specimens tested by the [facility] have not been cleared or approved by the U.S. Food and Drug Administration (FDA). The laboratory is regulated under the Clinical Laboratory Improvement Amendments (CLIA) as qualified to perform high-complexity testing. This test is used for clinical purposes. It should not be regarded as investigational or for research. Results based on detection/no detection of ribosomal RNA by amplified method. Jose Escobar MD LAB - MICROBIOLOGY O HAIR Performing Organization Address [facility] Co de Phone Number [facility] [address] [place] [address], [facility] [phone] * CHLAMYDIA + GC AMPLIFIED PROBE (STL) (03/03/2020 2:57 AM CDT) Chlamydia Amplified Probe Negative Negative 03/03/2020 1:24 PM CDT [facility] GC Amplified Probe Negative Negative 03/03/2020 1:24 PM CDT [facility] Microbiology URINE / Unknown Collection / Unknown 03/03/2020 2:57 AM CDT 03/03/2020 3:09 AM CDT Narrative [facility] - 03/03/2020 1:24 PM CDT Results based on detection/no detection of ribosomal RNA by amplified method. Jose Escobar MD LAB - MICROBIOLOGY O HAIR Performing Organization Address [facility] Co de Phone Number [facility] [address] [place] [address], [facility] [phone] * ZONISAMIDE LEVEL (03/02/2020 10:44 PM CDT) Zonisamide 37 10 - 40 ug/mL 03/04/2020 10:58 AM CDT [facility] ([facility] Comment: INTERPRETIVE INFORMATION: Zonisamide Therapeutic range: Not well established. Toxic: Greater than 80 ug/mL The proposed therapeutic range for seizure control is 10-40 ug/mL. Toxic concentrations may cause coma, seizures and cardiac abnormalities. Pharmacokinetics varies widely, particularly with co-medications and/or compromised renal function. Performed By: [facility] [address] [place] [address] Mental Health Technician: Dianne Ontiveros MD Blood BLOOD SPECIMEN / Unknown Venipuncture / Unknown 03/02/2020 10:44 PM CDT 03/02/2020 10:59 PM CDT Donald Segundo MD LAB - CHEMISTRY SALOME LUONG [facility] ([facility] [address] [place] [address], [facility] * CBC W AUTO DIFFERENTIAL (03/02/2020 10:44 PM CDT) Only the most recent of3 resultswithin the time period is included. WBC 9.8 3.5 - 10.5 10 3/uL 03/02/2020 11:07 PM [facility] RBC 4.58 3.90 - 5.00 10 6/uL 03/02/2020 11:07 PM [facility] Hemoglobin 13.7 12.0 - 15.5 g/dL 03/02/2020 11:07 PM [facility] Hematocrit 42.8 35.0 - 45.0 % 03/02/2020 11:07 PM [facility] MCV 93.4 81.0 - 97.0 fL 03/02/2020 11:07 PM [facility] MCH 29.9 28.0 - 34.0 pg 03/02/2020 11:07 PM [facility] MCHC 32.0 32.0 - 36.0 g/dL 03/02/2020 11:07 PM [facility] Platelet Count 251 150 - 400 10 3/uL 03/02/2020 11:07 PM [facility] RDW-SD 48.3 36.0 - 50.0 fL 03/02/2020 11:07 PM [facility] RDW-CV 14.0 11.2 - 14.8 % 03/02/2020 11:07 PM [facility] MPV 10.1 9.3 - 12.8 fL 03/02/2020 11:07 PM [facility] nRBC Absolute 0.00 0 10 3/uL 03/02/2020 11:07 PM CDT [facility] nRBC Auto 0.0 0 /100 WBC 03/02/2020 11:07 PM T [facility] Neutrophils % 64.8 35.0 - 70.0 % 03/02/2020 11:07 PM [facility] Lymphocytes % 27.2 19.7 - 55.1 % 03/02/2020 11:07 PM [facility] Monocytes % 5.4 3.0 - 15.0 % 03/02/2020 11:07 PM [facility] Eosinophils % 1.8 0.0 - 6.0 % 03/02/2020 11:07 PM [facility] Basophil % 0.5 0.0 - 1.5 % 03/02/2020 11:07 PM [facility] Neutrophils Absolute 6.3 1.6 - 7.0 10 3/uL 03/02/2020 11:07 PM T [facility] Lymphocyte Absolute 2.7 0.8 - 2.9 10 3/uL 03/02/2020 11:07 PM T [facility] Monocytes Absolute 0.53 0.14 - 0.66 10 3/uL 03/02/2020 11:07 PM [facility] Eosinophils Absolute 0.18 0.00 - 0.45 10 3/uL 03/02/2020 11:07 PM [facility] Basophils Absolute 0.05 0.00 - 0.06 10 3/uL 03/02/2020 11:07 PM [facility] Immature Granulocytes % 0.3 0.0 - 1.0 % 03/02/2020 11:07 PM [facility] Blood BLOOD SPECIMEN / Unknown Venipuncture / Unknown 03/02/2020 10:44 PM CDT 03/02/2020 6:13 PM CDT Donald Segundo MD LAB - HEMATOLOGY ORD ERABLES [facility] [address] [place] [address], [facility] [phone] * (ABNORMAL) COMPREHENSIVE METABOLIC PANEL (03/02/2020 10:44 PM CDT) Only the most recent of2 resultswithin the time period is included. BUN 21 7 - 26 mg/dL 03/02/2020 11:27 PM [facility] Creatinine 0.8 0.6 - 1.2 mg/dL 03/02/2020 11:27 PM [facility] Sodium 142 136 - 145 mmol/L 03/02/2020 11:27 PM [facility] Potassium 3.8 3.5 - 4.5 mmol/L 03/02/2020 11:27 PM [facility] Chloride 107 98 - 107 mmol/L 03/02/2020 11:27 PM [facility] CO2 26 22 - 29 mmol/L 03/02/2020 11:27 PM [facility] Glucose 89 70 - 115 mg/dL 03/02/2020 11:27 PM [facility] Calcium 8.8 8.4 - 10.2 mg/dL 03/02/2020 11:27 PM [facility] Protein Total 7.0 6.0 - 8.3 g/dL 03/02/2020 11:27 PM [facility] Albumin 3.8 3.4 - 5.0 g/dL 03/02/2020 11:27 PM [facility] Bilirubin Total 0.3 0.2 - 1.2 mg/dL 03/02/2020 11:27 PM [facility] Alkaline Phosphatase 98 40 - 150 Units/L 03/02/2020 11:27 PM [facility] ALT 13 0 - 55 Units/L 03/02/2020 11:27 PM [facility] AST 18 5 - 34 Units/L 03/02/2020 11:27 PM [facility] Anion Gap 13 8 - 18 03/02/2020 11:27 PM [facility] BUN/Creatinine Ratio 26(H) 7 - 23 03/02/2020 11:27 PM [facility] Osmolality Calculated 296 270 - 300 mOsm/kg 03/02/2020 11:27 PM [facility] Albumin/Globulin Ratio 1.2 1.1 - 2.3 03/02/2020 11:27 PM [facility] eGFR >60 >60 mL/min/1.7 3 m2 03/02/2020 11:27 PM [facility] Blood BLOOD SPECIMEN / Unknown Venipuncture / Unknown 03/02/2020 10:44 PM CDT 03/02/2020 6:13 PM CDT Donald Segundo MD LAB - CHEMISTRY SALOME LUONG Performing Organization Address City/[facility]/ZIP Co de Phone Number [facility] [address] [phone], [facility] [phone] * VITAMIN D 25-HYDROXY (03/07/2014 1:13 PM CDT) Vitamin D, 25 Hydroxy 69.6 30.0 - 100.0 ng/mL [facility] ACCOUNT BILL Comment: Vitamin D deficiency has been defined by the Baker of Medicine and an Endocrine Society practice guideline as a level of serum 25-OH vitamin D less than 20 ng/mL (1,2). The Endocrine Society went on to further define vitamin D insufficiency as a level between 21 and 29 ng/mL (2). 1. IOM (Baker of Medicine). 2010. Dietary reference intakes for calcium and D. [place]: The National Academies Press. 2. Angeli MF, Elizabeth NC, Heriberto-Victor Hugo SWAN, et al. Evaluation, treatment, and prevention of vitamin D deficiency: an Endocrine Society clinical practice guideline. JCEM. 2010; 96(7):1911-30. Blood specimen (specimen) BLOOD SPECIMEN / Unknown 03/07/2014 1:13 PM CDT 03/07/2014 3:55 PM CDT Narrative Resulting Agency Comment [facility] [address] [phone] Riccardo Nevarez MD LAB - CHEMISTRY ASLOME LUONG [facility] ACCOUNT BILL * VITAMIN B12 FOLATE PANEL (03/07/2014 1:13 PM CDT) Vitamin B12 607 211 - 946 pg/mL [facility] ACCOUNT BILL Folate >19.9 >3.0 ng/mL [facility] ACCOUNT BILL Comment: A serum folate concentration of less than 3.1 ng/mL is considered to represent clinical deficiency. Blood specimen (specimen) BLOOD SPECIMEN / Unknown 03/07/2014 1:13 PM CDT 03/07/2014 3:55 PM CDT Narrative Resulting Agency Comment [facility] [address] [place] [phone] Riccardo Nevarez MD LAB - CHEMISTRY SALOME LUONG Performing Organization Address [facility] de Phone Number [facility] ACCOUNT BILL * (ABNORMAL) TSH (03/07/2014 1:13 PM CDT) Only the most recent of4 resultswithin the time period is included. TSH 5.710(H) 0.450 - 4.500 uIU/mL [facility] ACCOUNT BILL Comment [facility] ACCOUNT BILL Comment: The Endocrine Society recommends against routine treatment for patients with elevated TSH levels below 10.000 uIU/mL if free T4 or T4 are normal. Thyroid function should be monitored at 6 to 12 month intervals. Women who are or hope to become in the near future deserve special consideration. Blood specimen (specimen) BLOOD SPECIMEN / Unknown 03/07/2014 1:13 PM CDT 03/07/2014 3:55 PM CDT Narrative Resulting Agency Comment [facility] [address] [facility] [phone] Riccardo Nevarez MD LAB - CHEMISTRY SALOME LUONG Performing Organization Address [facility] de Phone Number [facility] ACCOUNT BILL * HEPATITIS C ANTIBODY (07/17/2013 4:30 PM SECTION BEAMER) Only the most recent of2 resultswithin the time period is included. Hepatitis C Antibody 0.2 0.0 - 0.9 s/co ratio [facility] ACCOUNT BILL Comment: Negative: < 0.8 Indeterminate 0.8 - 0.9 Positive: > 0.9 . In order to reduce the incidence of a false positive result, the CDC recommends that all s/co ratios between 1.0 and 10.9 be confirmed by a more specific supplemental or PCR testing. [facility] offers HCV Ab w/Reflex to Verification test #[id number]. 07/17/2013 4:30 PM SECTION BEAMER 07/17/2013 6:16 PM SECTION BEAMER Narrative Resulting Agency [facility] [address] [facility] [address] [facility] [phone] Riccardo Nevarez MD LAB - CHEMISTRY SALOME LUONG Performing Organization Address [facility] de Phone Number [facility] ACCOUNT BILL * (ABNORMAL) LIPID PROFILE (07/17/2013 4:30 PM SECTION BEAMER) Only the most recent of3 resultswithin the time period is included. Cholesterol 200(H) 100 - 199 mg/dL [facility] ACCOUNT BILL Triglycerides 119 0 - 149 mg/dL [facility] ACCOUNT BILL HDL Cholesterol 62 >39 mg/dL [facility] ACCOUNT BILL Comment: According to ATP-III Guidelines, HDL-C >59 mg/dL is considered a negative risk factor for CHD. VLDL Calculated 24 5 - 40 mg/dL [facility] ACCOUNT BILL LDL Calculated 114(H) 0 - 99 mg/dL [facility] ACCOUNT BILL Comment NOT NEEDED [facility] ACCOUNT BILL Comment:Ancillary determined the test is not needed 07/17/2013 4:30 PM SECTION BEAMER 07/17/2013 6:16 PM SECTION BEAMER Narrative Resulting Agency [facility] [address] [facility] [phone] Riccardo Nevarez MD LAB - CHEMISTRY SALOME LUONG Performing Organization Address [facility] de Phone Number [facility] ACCOUNT BILL * GROWTH HORMONE HUMAN (04/09/2012 9:55 AM CDT) Growth Hormone 0.1 <=10.0 ng/mL [facility] Comment: Because of a pulsatile secretion pattern, random (unstimulated) growth hormone (GH) levels are frequently undetectable in normal children and adults and are not reliable for diagnosing GH deficiency. Regarding suppression tests, failure to suppress GH is diagnostic of acromegaly. Typical GH response in healthy subjects: Using the glucose tolerance (GH Suppression) test, acromegaly is ruled out if the patient's GH level is <1.0 ng/mL at any point in the timed sequence. Using GH stimulation testing, the following result at any point in the timed sequence rules out GH deficiency: Adults (> or = 20 Years): Insulin Hypoglycemia > or = 5.1 ng/mL Arginine/GHRH > or = 4.1 ng/mL Children (< 20 Years): All Stimulation Tests > or = 10.0 ng/mL REPORT COMMENT: FASTING Test Performed at: [facility] [phone] CAROLINA GARRETT MD Blood specimen (specimen) BLOOD SPECIMEN / Unknown 04/09/2012 9:55 AM CDT 04/09/2012 9:55 AM CDT Riccardo Nevarez MD [facility] Organization Address City/State/ZIP Co de Phone Number [facility] [address] [place] [address] * DEXA BONE DENSITY 2 SITES (03/13/2012 11:09 AM CDT) Anatomical Region Laterality Modality Nuclear Medicine 03/13/2012 11:1 5 AM CDT Impressions 03/13/2012 11:15 AM CDT Normal bone mineral density in the lumbar spine and bilateral hip regions. [employer] DEFINITIONS OSTEOPENIA = 1 - 2.5 SD BELOW T SCORE. OSTEOPOROSIS = >2.5 SD BELOW T SCORE Narrative 03/13/2012 11:15 AM CDT BONE MINERAL DENSITY STUDY: INDICATION: 57 -year-old female for osteoporosis screening FINDINGS: The mean bone mineral content of the lumbar spine is 1.241 g/cm2 . The T-score is 0.5 consistent with normal bone mineral density. The mean bone mineral content of the right hip region is 1.078 g/cm2 . The T-score is 0.6 consistent with normal bone mineral density. The mean bone mineral content of the left hip region is 0.961 g/cm2 . The T-score is -0.4 consistent with normal bone mineral density. Procedure Note Phill Eric MD - 03/13/2012 BONE MINERAL DENSITY STUDY: INDICATION: 57 -year-old female for osteoporosis screening FINDINGS: The mean bone mineral content of the lumbar spine is 1.241 g/cm2 . The T-score is 0.5 consistent with normal bone mineral density. The mean bone mineral content of the right hip region is 1.078 g/cm2 . The T-score is 0.6 consistent with normal bone mineral density. The mean bone mineral content of the left hip region is 0.961 g/cm2 . The T-score is -0.4 consistent with normal bone mineral density. IMPRESSION Normal bone mineral density in the lumbar spine and bilateral hip regions. [employer]ATION DEFINITIONS OSTEOPENIA = 1 - 2.5 SD BELOW T SCORE. OSTEOPOROSIS = >2.5 SD BELOW T SCORE Riccardo Nevarez MD DEXA ORDERABLES * TED SCREENING DIGITAL IMAGE BILATERAL [id number] (03/13/2012 10:13 AM CDT) Anatomical Region Laterality Modality Breast Bilateral Mammography 03/16/2012 9:09 AM CDT Narrative 03/16/2012 9:09 AM CDT EXAMINATION: Digital screening mammogram on 03/13/2012. PRIOR: Right-sided mammogram July 2009 [facility] FINDINGS: Computer assisted detection was utilized. The tissue density is average. No change is noted in the appearance of the right breast. Right breast tissue marker is unchanged. No prior left breast mammograms are available but no discrete abnormality is seen within the left breast. ASSESSMENT: BIRADS Category 1: Negative mammogram. RECOMMENDATION: Follow up in one year. [facility] utilizes [employer] as a reminder system to notify patients of their next recommended mammogram. Procedure Note Vianey Stewart MD - 03/16/2012 EXAMINATION: Digital screening mammogram on 03/13/2012. PRIOR: Right-sided mammogram July 2009 [facility] FINDINGS: Computer assisted detection was utilized. The tissue density is average. No change is noted in the appearance of the right breast. Right breast tissue marker is unchanged. No prior left breast mammograms are available but no discrete abnormality is seen within the left breast. ASSESSMENT: BIRADS Category 1: Negative mammogram. RECOMMENDATION: Follow up in one year. [facility] utilizes [employer] as a reminder system to notify patients of their next recommended mammogram. Riccardo Nevarez MD MAMMO ORDERABLES * GROSS + MICRO EXAM (12/12/2007 11:30 AM CDT) Only the most recent of3 resultswithin the time period is included. Result CASE NUMBER [id number] Comment: ORDERING PHYSICIAN REINALDO WHITLOCK SPECIMEN TYPE Lesion-rt upper eyelid Date 12/13/2007 Physician Kathryn Whitlock Gross Description The specimen is received in formalin labeled with the patient's name and right upper eyelid . It consists of a 0.5 x 0.5 x 0.4 cm. keratinous wrinkled lara brown skin nodule. It is inked, bisected and all submitted in a single cassette. LW/bk Microscopic Exam Sections of the right upper eyelid reveal hyperkeratosis, basal cell hyperplasia and keratinous cyst. There is no evidence of malignancy. MM/bk Diagnosis I. Eyelid, right upper, lesion, excision -- Seborrheic keratosis. MM/guy Postal Supervisor bk Pathologist Cady Colin M.D. [place]. 12/14/2007 1301 <1> CPT code 04048 MISCELLANEOUS SAMPLES / Unknown 12/12/2007 11:30 AM CDT 12/13/2007 10:09 AM CDT Historical Provider LAB - PATHOLOGY/C YTOLOGY ORDERABLES Care Teams Research Associate Relationship Specialty Start Date End Date Graham Magallanes [facility] [place] [address] Neurology 03/07/14 Marie Kwan MD [address] [facility] [address] [place] [address] Neurology 03/07/14
--- OUTSIDE RECORDS SUMMARY | 2024-08-07 15:12 | XMS_ITS | Referral Summary ---
Author Organization [facility] Address [address] [place] [address] Care Team Providers Care House Wirer Name Role Phone Graham Magallanes MD Unavailable [phone] Marie Kwan MD Unavailable [phone] Source Comments [facility],non-owned Affiliates and Associated Physician Practices is amultiple site organization consisting of ambulatory clinics and hospital sitesin [place], [place] and [place]. This disclosure is being madepursuant to the Care Everywhere program and may not contain all information available regarding this patient. Last updated 18.[facility] Allergies Active Allergy Reactions Criticality Noted Date Comments Duloxetine 02/07/2012 Caused perfecto Medications * Be aware that medications may not be up to date on this document. Alwaysverify current medications with the patient. Medication Sig Dispensed Refills Start Date End Date Status FLUoxetine (PROZAC) 40 MG capsule Take 1 Cap by mouth once daily. 30 Cap 5 02/07/2012 Active clonazePAM (KLONOPIN) 0.5 MG tablet Take 2 Tabs by mouth 2 times daily. 0 02/07/2012 Active vitamin D (CHOLECACIFEROL) 5000 UNITS CAPS Take 3 Caps by mouth every 7 days. 02/07/2012 Active donepezil (ARICEPT) 10 MG tablet Take 0.5 mg by mouth at bedtime. Active Multiple Vitamin (MULTI-VITAMIN DAILY PO) Take by mouth. Active B Complex Vitamins (B COMPLEX PO) Take by mouth. Active Ascorbic Acid (VITAMIN C PO) Take by mouth. Active vitamin E (TOCOPHERYL) 1000 UNIT capsule Take 1,000 Units by mouth once daily. Active levothyroxine (SYNTHROID) 88 MCG tablet Take 1 Tab by mouth once daily. 90 Tab 3 07/17/2013 Active bimatoprost (LUMIGAN) 0.03 % ophthalmic solution 1 Drop at bedtime. 5 mL 3 08/12/2013 Active zonisamide (ZONEGRAN) 100 MG capsule Take 100 mg by mouth once daily. Active pravastatin (PRAVACHOL) 80 MG tablet TAKE 1 TABLET AT BEDTIME 90 Tab 2 06/05/2014 Active Active Problems Problem Noted Date Diagnosed Date Cognitive change Overview (02/07/2012): Aniya Pitts - recently Hypothyroid Depression Hypercholesteremia GERD (gastroesophageal reflux disease) Immunizations Name Administration Dates Next Due INFLUENZA VACCINE, TRIV. (AF LURIA, FLUZONE TRIVALENT; 6MO+) (IIV3) 04/16/2012 FLU VACCINE TRI IIV3 SPLIT PF IM (FLUVIRIN) 07/04 Social History Tobacco Use Types Packs/Day Years [...] Mass Index 23.24 03/02/2020 2:13 PM CDT Plan of Treatment Not on file Goals Goal Patient Goal Type Associated Problems Recent Progress Patient-Stated? Author [facility] Lifestyle:Decre ase anxiety / depression / stress levels Lifestyle No Jasmin Yee Procedures Procedure Name Priority Date/Time Associated Diagnosis Comments HEPATITIS C ANTIBODY 07/17/2013 4:30 PM FOOT SPECIALIST DEXA BONE DENSITY 2 SITES Routine 03/13/2012 11:09 AM CDT Special screening for osteoporosis MAMMO BILAT SCREENING Routine 03/13/2012 10:13 AM CDT Other screening mammogram from Last 3 Months or Most Recently Relevant to Health Maintenance Results * HEPATITIS C ANTIBODY (07/17/2013 4:30 PM FOOT SPECIALIST) Hepatitis C Antibody 0.2 0.0 - 0.9 s/co ratio [facility] ACCOUNT BILL Comment: Negative: < 0.8 Indeterminate 0.8 - 0.9 Positive: > 0.9 . In order to reduce the incidence of a false positive result, the CDC recommends that all s/co ratios between 1.0 and 10.9 be confirmed by a more specific supplemental or PCR testing. [facility] offers HCV Ab w/Reflex to Verification test #[id number]. 07/17/2013 4:30 PM FOOT SPECIALIST 07/17/2013 6:16 PM FOOT SPECIALIST Narrative Resulting Agency Comment [facility] [address] [id number] Riccardo Nevarez MD LAB - CHEMISTRY SALOME LUONG [facility] Organization Address City/State/ZIP Co de Phone Number [facility] ACCOUNT BILL * DEXA BONE DENSITY 2 SITES (03/13/2012 [...] on 03/13/2012. PRIOR: Right-sided mammogram July 2009 [facility] FINDINGS: Computer assisted detection was utilized. The tissue density is average. No change is noted in the appearance of the right breast. Right breast tissue marker is unchanged. No prior left breast mammograms are available but no discrete abnormality is seen within the left breast. ASSESSMENT: BIRADS Category 1: Negative mammogram. RECOMMENDATION: Follow up in one year. [facility] utilizes [employer] as a reminder system to notify patients of their next recommended mammogram. Procedure Note Vianey Stewart MD - 03/16/2012 EXAMINATION: Digital screening mammogram on 03/13/2012. PRIOR: Right-sided mammogram July 2009 [facility] FINDINGS: Computer assisted detection was utilized. The tissue density is average. No change is noted in the appearance of the right breast. Right breast tissue marker is unchanged. No prior left breast mammograms are available but no discrete abnormality is seen within the left breast. ASSESSMENT: BIRADS Category 1: Negative mammogram. RECOMMENDATION: Follow up in one year. [facility] utilizes [employer] as a reminder system to notify patients of their next recommended mammogram. Riccardo Nevarez MD MAMMO ORDERABLES from Last 3 Months or Most Recently Relevant to Health Maintenance Care Teams House Wirer Relationship Specialty Start Date End Date Graham Magallanes MD [address] [place] [address] Neurology 03/07/14 Marie Kwan MD [address] [facility] [address] [place] [address] Neurology 03/07/14
--- OUTSIDE RECORDS SUMMARY | 2024-08-07 15:12 | XMS_ITS | Referral Summary ---
Author Organization [facility] Address [address] [place] [address] Care Team Providers Care Gas Or Water Meter Installer Name Role Phone Srinivas Khan MD Primary Care Provider [phone] Allergies Active Allergy Reactions Criticality Noted Date Comments Duloxetine Other (See comments) Low 02/07/2012 Caused perfecto Medications levothyroxine (SYNTHROID, LEVOTHROID) 100 mcg tablet take 1 tablet (100MCG) by oral route every day 90 1 2 Active Additional Information Patient taking differently: 88 mcg oral Daily, Reported on 09/16/2021 FLUoxetine (PROzac) 20 mg capsule Take 1 capsule (20 mg total) by mouth daily Active donepeziL (ARICEPT) 10 mg tablet Take 1 tablet (10 mg total) by mouth nightly 90 tablet 3 3 Active Active Problems Problem Noted Date Diagnosed Date Hypothyroid 02/23/2021 Seizure (CMS/HCC) 07/25/2018 Cognitive changes 08/03/2017 Intractable chronic migraine without aura 2013 Overview (10/06/2016): Chronic intractable migraine without aura Abnormal gait 06/13/2013 Overview (10/07/2016): Gait disorder Episodic mood disorder 06/13/2013 Overview (10/07/2016): Mood disorder Myoclonus 06/13/2013 Overview (10/07/2016): Myoclonus Complaint 06/13/2013 Overview (10/07/2016): Cognitive complaints Immunizations Name Administration Dates Next Due Influenza, Quadrivalent, Split, Intramuscular Influenza, Quadrivalent, Spl it, Preservative Free, Intramuscular 04/14/2020 Influenza, Trivalent, IM (MDV) 04/16/2012 Influenza, Trivalent, Preservative Free, Intramu scular 07/22/2013 Pfizer SARS-CoV-2 Monovalent Vaccination (12+ Yrs) PURPLE 09/29/2020,09/08/2020 Tdap 07/03/2014 Social History Tobacco Use Types Packs/Day Years Used Date Smoking Tobacco: Every Day Cigarettes Smokeless Tobacco: Never Alcohol Use Standard Drinks/Week Comments No 0 (1 standard drink = 0.6 oz pur e alcohol) AUDIT-C Answer Date Recorded Q1: How often do you have a drink containing alc ohol? Never 09/16/2021 Average Number of Drinks Not on file 022 Q3: How often do you have si x or more drinks on one occasion? 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 Gender Identity Not on file Sexual Orientation Not on file Last Filed Vital Signs Vital Sign Reading Time Taken Comments Blood Pressure 116/74 01/10/2023 3:01 PM CDT Pulse 68 01/10/2023 3:01 PM CDT Temperature 36.9 C (98.4 F) 02/27/2021 10:30 AM CDT Respiratory Rate 16 01/10/2023 3:01 PM CDT Oxygen Saturation 97% 02/27/2021 10:30 AM CDT Inhaled Oxygen Concentration - - Weight 68 kg (150 lb) 01/10/2023 3:01 PM CDT Height 152 cm (4' 11.84 ) 01/10/2023 3:01 PM CDT Body Mass Index 29.45 01/10/2023 3:01 PM CDT Plan of Treatment Not on file Insurance [facility] MEDICARE HMO MEDICARE [facility] [employer] CHOICE MEDICARE PPO Advance Directives For more information, please contact: [phone] * Full Code (Latest Code Status on File) Date Activated Date Inactivated Comments 02/23/2021 10:43 AM 02/27/2021 9:17 PM Care Teams Gas Or Water Meter Installer Relationship Specialty Start Date End Date Srinivas Khan MD [address] [place] [address] PCP - General Internal Medicine 07/17/19
--- OUTSIDE RECORDS SUMMARY | 2024-08-07 15:12 | XMS_ITS | Clinical Summary ---
Author Organization [facility] Address [address] [place] [address] Care Team Providers Care Liner Reroll Tender Name Role Phone Srinivas Khan MD Primary Care Provider [phone] Allergies Active Allergy Reactions Criticality Noted Date [...] Vaccination (12+ Yrs) PURPLE 09/29/2020,09/08/2020 Tdap 07/03/2014 Surgical History Surgery Date Site/Laterality Comments APPENDECTOMY Appendectomy TUBAL LIGATION Bilateral tubal ligation Medical History Medical History Date Comments Hypothyroidism HYPOTHYROIDISM Hyperlipidemia Hyperlipidemia Hx Other Medical bipolar disorde r Hx Other Medical Headache, migra ine Migraine Family History Medical History Relation Name Comments Brain cancer Brother Cancer, brain; Other Father AVMs; Multiple sclerosis Mother Multiple sclerosis; Relation Name Status Comments Brother Father Mother Social History Tobacco Use Types Packs/Day Years [...] on file 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 Gender Identity Not on file Sexual Orientation Not on file Obstetrics History Last Filed Vital Signs Vital Sign Reading [...] 01/10/2023 3:01 PM CDT Plan of Treatment Health Maintenance Due Date Last Done Comments Breast Cancer Screening-Mammogram 1957 Colon Cancer Screening-Colonoscopy 1955 Depression Screening 1957 Hepatitis C Screening 1957 Osteoporosis Screening-Bone Density Scan 1957 Pneumococcal vaccine 65+ (1 of 2 - PCV) 1963 Hepatitis B Screening 1975 Zoster Vaccine (1 of 2) 2007 Well Visit 65+ 2022 Fall Risk Assessment 02/27/2022 02/27/2021 Covid-19 Vaccine (3 - 2023-2 5 season) 2024 09/29/2020, 09/08/2020 Influenza Vaccine (#1) 2024 , 03/03/2019, 07/22/2013, Additional history exists DTaP/Tdap/Td Vaccine (2 - Td or Tdap) 07/03/2024 07/03/2014 Insurance [facility] MEDICARE HMO MEDICARE [facility] [employer] CHOICE MEDICARE PPO Advance Directives For more information, please contact: [phone] * Full Code (Latest Code Status on File) Date Activated Date Inactivated Comments 02/23/2021 10:43 AM 02/27/2021 9:17 PM Care Teams Liner Reroll Tender Relationship Specialty Start Date End Date Srinivas Khan MD [address] [facility] [address] [place] [address] PCP - General Internal Medicine 07/17/19
--- OUTSIDE RECORDS SUMMARY | 2024-08-07 15:12 | XMS_ITS | Clinical Summary ---
Author Organization [facility] Address [address] [place] [address] Care Team Providers Care Honing Machine Operator Semiautomatic Name Role Phone Graham Magallanes MD Unavailable [phone] Marie Kwan MD Unavailable [phone] Source Comments [facility],non-owned Affiliates and Associated Physician Practices is amultiple site organization consisting of ambulatory clinics and hospital sitesin [place], [place], [place] and [place]. This disclosure is being madepursuant to the Care Everywhere program and may not contain all information available regarding this patient. Last updated 18.[facility] Allergies Active Allergy Reactions Criticality Noted Date [...] 03/02/2020 2:13 PM CDT Plan of Treatment Health Maintenance Due Date Last Done Comments COLOGUARD (AGES 45-75) - COL ON CA SCREENING [address] COLONOGRAPHY - COLON CA SCREENING 1955 FIT - COLON CA SCREENING 1955 FLEX SIG - COLON CA SCREENING 1957 DTAP/TDAP/TD VACCINES (1 - Tdap) 02/17/1976 PNEUMOCOCCAL VACCINE 50+ (1 of 1 - PCV) 2007 ZOSTER VACCINE (1 of 2) 2007 MAMMOGRAM 03/13/2014 03/13/2012 COLONOSCOPY - COLON CA SCREENING 02/06/2019 02/06/2009 Colorectal Cancer Screening 02/06/2019 COVID-19 VACCINE (1 - 2023-2 5 season) 2024 INFLUENZA VACCINE (#1) 2024 4, 04/16/2012 DEPRESSION SCREENING 07/03/2024 Respiratory Syncytial Virus (RSV) Vaccine Pt: or over 60 yrs (1 - 1-dose 75+ series) 02/17/2032 BONE DENSITY TESTING Completed 03/13/2012 HEPATITIS C SCREENING Completed 07/17/2013 , 01/21/2013 HEPATITIS B VACCINE Aged Out No longe r eligible based on patient's age to complete this topic HIB VACCINE Aged Out No longer eligi ble based on patient's age to complete this topic HPV VACCINE Aged Out No longer eligi ble based on patient's age to complete this topic MENINGOCOCCAL (Group B) VACCINE Aged Out No longer eligible b ased on patient's age to complete this topic MENINGOCOCCAL VACCINE Aged Out No fish timmy eligible based on patient's age to complete this topic Goals Goal Patient Goal Type Associated Problems Recent Progress Patient-Stated? Author [facility] Lifestyle:Decre ase anxiety / depression / stress levels Lifestyle No Jasmin Yee Procedures Procedure Name Priority Date/Time Associated Diagnosis Comments HEPATITIS C ANTIBODY 07/17/2013 4:30 PM BURRING MACHINE OPERATOR DEXA BONE DENSITY 2 SITES Routine 03/13/2012 11:09 AM CDT Special screening for osteoporosis MAMMO BILAT SCREENING Routine 03/13/2012 10:13 AM CDT Other screening mammogram from Last 3 Months or Most Recently Relevant to Health Maintenance Results * HEPATITIS C ANTIBODY (07/17/2013 4:30 PM BURRING MACHINE OPERATOR) Hepatitis C Antibody 0.2 0.0 - 0.9 s/co ratio [facility] ACCOUNT BILL Comment: Negative: < 0.8 Indeterminate 0.8 - 0.9 Positive: > 0.9 . In order to reduce the incidence of a false positive result, the CDC recommends that all s/co ratios between 1.0 and 10.9 be confirmed by a more specific supplemental or PCR testing. [facility] Ab w/Reflex to Verification test #[id number]. 07/17/2013 4:30 PM BURRING MACHINE OPERATOR 07/17/2013 6:16 PM BURRING MACHINE OPERATOR Narrative Resulting Agency Comment [facility] [address] [id number] Riccardo Nevarez MD LAB - CHEMISTRY SALOME LUONG [facility] Organization Address City/State/ZIP Co de Phone Number [...] on 03/13/2012. PRIOR: Right-sided mammogram July 2009 [facility] FINDINGS: Computer assisted detection was utilized. The tissue density is average. No change is noted in the appearance of the right breast. Right breast tissue marker is unchanged. No prior left breast mammograms are available but no discrete abnormality is seen within the left breast. ASSESSMENT: BIRADS Category 1: Negative mammogram. RECOMMENDATION: Follow up in one year. [facility] utilizes [employer] as a reminder system to notify patients of their next recommended mammogram. Procedure Note Vianey Stewart MD - 03/16/2012 EXAMINATION: Digital screening mammogram on 03/13/2012. PRIOR: Right-sided mammogram July 2009 [facility] FINDINGS: Computer assisted detection was utilized. The tissue density is average. No change is noted in the appearance of the right breast. Right breast tissue marker is unchanged. No prior left breast mammograms are available but no discrete abnormality is seen within the left breast. ASSESSMENT: BIRADS Category 1: Negative mammogram. RECOMMENDATION: Follow up in one year. [facility] utilizes [employer] as a reminder system to notify patients of their next recommended mammogram. Riccardo Nevarez MD MAMMO ORDERABLES from Last 3 Months or Most Recently Relevant to Health Maintenance Care Teams Honing Machine Operator Semiautomatic Relationship Specialty Start Date End Date Graham Magallanes MD [address] [place] [address] Neurology 03/07/14 Marie Kwan MD [address] [facility] [address] [place] [address] Neurology 03/07/14
[2024-08-07 16:36] LABS: Alanine Aminotransferase 18 U/L (6-35); Albumin Level 4.6 g/dL (3.5-5.1); Alkaline Phosphatase 108 U/L (38-126); Anion Gap 9 mmol/L (4-12); Aspartate Amino Transferase 23 U/L (14-36); Bilirubin,Total 0.6 mg/dL (0.2-1.3); Blood Urea Nitrogen 16 mg/dL (7-17); Calcium 10.2 mg/dL (8.4-10.2); Carbon Dioxide 29 mmol/L (22-30); Chloride 103 mmol/L (98-107); Cholesterol 284 mg/dL (0-200); Estimated Glomerular Filt Rate > 60; Glucose 99 mg/dL (65-110); HDL Direct 49 mg/dL; Potassium 4.6 mmol/L (3.4-5.0); Sodium 141 mmol/L (137-145); Triglycerides 224 mg/dL (<150)
[2024-08-07 16:45] LABS: Free T4 Free Thyroxine 1.59 ng/dL (0.78-2.19)
[2024-08-07 16:52] LABS: LDL Cholesterol Direct 169 mg/dL
[2024-08-07 17:16] LABS: Thyroid Stimulating Hormone 0.675 uIU/mL (0.465-4.680)
[2024-08-07 17:49] LABS: Folic Acid 6.3 ng/mL (2.76->20)
== END 2024-08-07 14:15 | disposition home or self-care (01) ==
PROVIDERS: PCP Nurse Practitioner; Visit Provider Nurse Practitioner
DX: E03.9 Hypothyroidism, unspecified (principal); E78.5 Hyperlipidemia, unspecified; R53.83 Other fatigue
CPT/HCPCS: 36415; 80053; 80061; 82607; 82746; 84439; 84443